=== PATIENT | female | born 1985 | race Hispanic/Latino ===

== ENCOUNTER 2021-10-10 12:48 | Emergency (ER) | payer SELFPAY ==
[2021-10-10] MEDS ORDERED: SODIUM CHLORIDE 0.9% 1000 ML 1,000 ML IV ONE (13:12)
--- NOTE | 2021-10-10 13:18 | Emergency Department Report ---
HPI - General Chief Complaint: Overdose Time Seen by Provider: 10/10/21 13:07 - [facility] HPI: Room 20 Patient is a 36-year-old female present with chief complaint of opiate overdose. Patient was reportedly [facility] arrived and administered Narcan 2 mg IM with improvement of the patient. Patient is now ANO x4. Patient states she snorted what she thought was one half of a Roxicet. Patient now just complains of feeling tired ED Past Medical Hx - Past Medical History Additional medical history: History of endocarditis - Surgical History Hx Cholecystectomy: Yes - Family History Family history: no significant - Social History Smoking Status: Current Every Day Smoker (1/2 pack/day) Substance Use Type: Alcohol (Occasional), Marijuana, Other (Opiates) ED Review of Systems ROS: Stated complaint: OVERDOSE Other details as noted in HPI Constitutional: no symptoms reported Eyes: denies: eye pain ENT: denies: throat pain Respiratory: no symptoms reported Cardiovascular: denies: chest pain Endocrine: no symptoms reported Gastrointestinal: denies: abdominal pain Genitourinary: denies: dysuria Neurological: denies: headache Physical Exam - Physical Exam Vital Signs: Vital Signs 10/10/21 12:56 Temperature 98.5 F Pulse Rate 109 H Respiratory 18 Rate Blood Pressure 131/85 [Left] O2 Sat by Pulse 98 Oximetry Physical Exam: GENERAL: The patient is well-developed well-nourished female lying on stretcher not appearing to be in acute distress. [] HEENT: Normocephalic. Atraumatic. Extraocular motions are intact. Patient has moist mucous membranes. NECK: Supple. Trachea midline CHEST/LUNGS: Clear to auscultation. There is no respiratory distress noted. HEART/CARDIOVASCULAR: Regular. There is no tachycardia. There is no gallop rub or murmur. ABDOMEN: Abdomen is soft, nontender. Patient has normal bowel sounds. There is no abdominal distention. SKIN: There is no rash. There is no edema. There is no diaphoresis. NEURO: The patient is awake, alert, and oriented. The patient is cooperative. The patient has no focal neurologic deficits. The patient has normal speech. GCS 15 MUSCULOSKELETAL: There is no evidence of acute injury. ED Course Vital Signs 10/10/21 12:56 Temperature 98.5 F Pulse Rate 109 H Respiratory 18 Rate Blood Pressure 131/85 [Left] O2 Sat by Pulse 98 Oximetry ED Medical Decision Making - Lab Data Result diagrams: 10/10/21 13:49 10/10/21 13:49 Laboratory Tests 10/10/21 10/10/21 10/10/21 13:49 13:49 13:49 WBC 8.6 RBC 4.85 Hgb 14.9 H Hct 43.9 H MCV 91 MCH 31 MCHC 34 RDW 13.3 Plt Count 170 Lymph % (Auto) 18.3 [place] % (Auto) 7.7 H Eos % (Auto) 1.4 Baso % (Auto) 0.7 Lymph # (Auto) 1.6 [place] # (Auto) 0.7 Eos # (Auto) 0.1 Baso # (Auto) 0.1 Seg Neutrophils % 71.9 H Seg Neutrophils # 6.2 Sodium 139 Potassium 3.7 Chloride 104.2 Carbon Dioxide 20 L Anion Gap 19 BUN 11 Creatinine 0.7 Estimated GFR > 60 BUN/Creatinine Ratio 16 Glucose 130 H Calcium 9.4 Total Creatine Kinase 60 CK-MB (CK-2) 2.0 CK-MB (CK-2) Rel Index 3.3 Troponin T < 0.010 HCG, Qual Plasma/Serum Alcohol < 0.01 10/10/21 13:49 WBC RBC Hgb Hct MCV MCH MCHC RDW Plt Count Lymph % (Auto) [place] % (Auto) Eos % (Auto) Baso % (Auto) Lymph # (Auto) [place] # (Auto) Eos # (Auto) Baso # (Auto) Seg Neutrophils % Seg Neutrophils # Sodium Potassium Chloride Carbon Dioxide Anion Gap BUN Creatinine Estimated GFR BUN/Creatinine Ratio Glucose Calcium Total Creatine Kinase CK-MB (CK-2) CK-MB (CK-2) Rel Index Troponin T HCG, Qual Negative Plasma/Serum Alcohol - Medical Decision Making Patient made aware that the opiates duration of action seems to be longer than Narcan so she needs to be observed in the emergency department otherwise she may revert back to her previous state. Patient verbalized understanding - Differential Diagnosis Opiate overdose Critical care attestation.: If time is entered above; I have spent that time in minutes in the direct care of this critically ill patient, excluding procedure time. ED Disposition Clinical Impression: Opiate overdose Disposition: LEFT AGAINST MEDICAL ADVICE Is pt being admited?: No Does the pt Need Aspirin: No Condition: Undetermined Time of Disposition: 14:43 (Patient leaving AMA)
[2021-10-10] MEDS ORDERED: ONDANSETRON 4 MG/2 ML INJ IV ONE (14:03)
[2021-10-10 14:05] LABS: Basophils # (Auto) 0.1 K/mm3 (0.0-0.1); Basophils % (Auto) 0.7 % (0.0-1.8); Eosinophils # (Auto) 0.1 K/mm3 (0.0-0.4); Eosinophils % (Auto) 1.4 % (0.0-4.3); Hematocrit 43.9 % (30.3-42.9); Hemoglobin 14.9 gm/dl (10.1-14.3); Lymphocytes # (Auto) 1.6 K/mm3 (1.2-5.4); Lymphocytes % (Auto) 18.3 % (13.4-35.0); Mean Corpuscular HGB Conc 34 % (30-34); Mean Corpuscular Volume 91 fl (79-97); Monocytes # (Auto) 0.7 K/mm3 (0.0-0.8); Monocytes % (Auto) 7.7 % (0.0-7.3); Platelet Count 170 K/mm3 (140-440); Red Blood Count 4.85 M/mm3 (3.65-5.03); Red Cell Distribution Width 13.3 % (13.2-15.2)
[2021-10-10 14:39] LABS: Blood Urea Nitrogen 11 mg/dL (7-17); Calcium 9.4 mg/dL (8.4-10.2); Hemolysis Index 13
[2021-10-10 14:40] LABS: BUN/Creatinine Ratio 16
[2021-10-10] MEDS ORDERED: ONDANSETRON 4 MG ODT TAB PO ONE (14:44)
[2021-10-10 15:40] VITALS: BP 108/69
--- NOTE | 2021-10-11 10:04 | Electrocardiograph Report ---
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
== END 2021-10-10 14:44 | disposition left against medical advice (07) ==
LOC: ED 12:48
DX: T40.601A Poisoning by unspecified narcotics, accidental (unintentional), initial encounter (principal); Z98.890 Other specified postprocedural states; F17.290 Nicotine dependence, other tobacco product, uncomplicated; Y92.89 Other specified places as the place of occurrence of the external cause
CPT/HCPCS: 36415; 80048; 80320; 82550; 82553; 84484; 84703; 85025; 93005; 99284; J3490; G0480; J2405; J7030; Q0162